=== PATIENT | male | born 1945 | race Caucasian/White ===

== ENCOUNTER 2017-09-09 21:00 | Emergency (ER) | payer MEDICARE, OTHER | END 2017-09-09 21:33 | disposition home or self-care (01) | LOC: ED 21:00 | DX: S61.412A Laceration without foreign body of left hand, initial encounter (principal); W26.8XXA Contact with other sharp object(s), not elsewhere classified, initial encounter; Y93.H9 Activity, other involving exterior property and land maintenance, building and construction | CPT/HCPCS: 12002; 99283 ==

== ENCOUNTER 2019-03-10 08:17 | Emergency (ER) | payer MEDICARE, OTHER ==
--- NOTE | 2019-03-10 08:38 | ERPHSYRPT ---
- History of Present Illness Time Seen by Provider: 03/10/19 08:21 Source: patient Exam Limitations: no limitations Physician History: The patient is a 76-year-old male who presents with a chief complaint of a cough. Onset was last Friday, March 08, 2019. Since that time, and her as having a dry cough that is associated with rhinorrhea, sore throat.. He also states that he feels a "tickle" in the back of his throat which causes him to cough. He denies fever, chills, tones are, difficulty swallowing, change in his voice, shortness of breath and chest pain. He states that he did cough during the change of seasons every year, specifically the spring and fall and this is his typical cough but he experiences during this time. He's been using Tussionex cough syrup to help alleviate his cough but he ran out yesterday. He reportly is also using any drugs The patient seeking relief and medication to relieve his cough. the patient denies smoking currently and has never used tobacco in the past. His primary care provider is associated with [facility]. Timing/Duration: other (03/08) Cough Quality/Degree: mild, dry cough Possible Cause: occasional episodes Modifying Factors: Improves With: lying down Associated Symptoms: cough, nasal congestion, sore throat, No fever, No chills, No chest pain/soreness, No earache, No headache, No shortness of breath, No sinus infection, No wheezing Allergies/Adverse Reactions: No Known Drug Allergies Allergy (Verified 03/10/19 08:37) Home Medications: Fiber [Fiber Diet] 1 each PO DAILY 03/10/19 [History] Multivitamin [Multi-Vitamin Daily] 1 each PO DAILY 03/10/19 [History] - Review of Systems Constitutional: No Fever, No Chills Eyes: No Symptoms Ears, Nose, & Throat: Nose Congestion, Throat Pain, No Hoarse, No Painful Swallowing, No Stridor Respiratory: Cough, No Dyspnea, No Dyspnea on Exertion ([place]), No Stridor, No Wheezing Cardiac: No Chest Pain Abdominal/Gastrointestinal: No Abdominal Pain, No Nausea, No Vomiting All Other Systems: Reviewed and Negative - Past Medical History Pertinent Past Medical History: Yes ENT History: Other (Hearing loss) Cardiac History: No Pertinent History Respiratory History: No Pertinent History Endocrine Medical History: No Pertinent History Musculoskeletal History: No Pertinent History GI Medical History: No Pertinent History - Past Surgical History Neuro Surgical History: No Pertinent History Cardiac: No Pertinent History Respiratory: No Pertinent History - Nursing Vital Signs Nursing Vital Signs: Initial Vital Signs Temperature 98.0 F 03/10/19 08:22 Pulse Rate 73 03/10/19 08:22 Blood Pressure 158/85 03/10/19 08:22 O2 Sat by Pulse Oximetry 97 03/10/19 08:22 Pain Scale Pain Intensity 0 - Physical Exam General Appearance: no apparent distress, alert Eye Exam: PERRL/EOMI, eyes nml inspection, scleral icterus, No pale conjunctivae Ears, Nose, Throat Exam: normal ENT inspection, pharynx normal, moist mucous membranes, other (Partial cerumen impaction in the R ear. No evidence of IT RECRUITER, uvulitis, or Ludwigs), No pharyngeal erythema, No tonsillar exudate Neck Exam: normal inspection Respiratory Exam: normal breath sounds, No chest tenderness, No lungs clear, No respiratory distress, No airway intact, No pleural rub Cardiovascular Exam: regular rate/rhythm, normal heart sounds, normal peripheral pulses, capillary refill <2 sec, No murmur, No friction rub Gastrointestinal/Abdomen Exam: soft, No tenderness Extremity Exam: normal inspection, other (Specifially no lower extremity edema bilaterally), No swelling Neurologic Exam: alert, oriented x 3, cooperative Skin Exam: normal color, warm, dry, No rash, No petechiae, No jaundice Lymphatic Exam: No adenopathy SpO2 Interpretation: normal O2 Delivery: Room Air - Course Nursing assessment & vital signs reviewed: Yes - Radiology Exams Chest X-ray Interpretation: Interpreted by me, Reviewed by me, No Fracture (No acute process identified. Awaiting formal radiology read.), No Pneumonia, No Infiltrates Ordered Tests: Active Orders 24 hr Category Date Time Status CHEST 2 VIEWS (PA AND LAT) Stat Exams 03/10/19 09:02 Taken - Progress Progress: unchanged Air Movement: good Progress Note: 03/10/19 08:43 the patient is nontoxic in appearance with normal work of breathing, clear lung sounds and obvious respiratory distress or hypoxia. I suspect the patient is likely suffering from our URI rigidity to his cough which may be exacerbated by postnasal drip. The go ahead and obtain a chest x-ray which I suspect to be within normal limits. the chest x-ray we'll program to be obtained given his differential includes pneumonia, pulmonary edema, chest mass and/or pleural effusion. I currently have a low suspicion that his symptoms are from a ACS equivalent and I have a low suspicion that his symptoms are secondary to a pulmonary embolism and therefore out of her further workup for such. and so he' ll be discharged home with symptomatic treatment consisting of saline nasal spray,, Tessalon Perles, and albuterol inhaler to use as needed to treat his cough. Blood Culture(s) Obtained: No Antibiotics given: No Counseled pt/family regarding: need for follow-up (Need to f/u with PCP to have blood pressure rechecked given elevated reading in ED today), rad results - Departure Departure Disposition: Home, In-patient Admission Clinical Impression: Viral upper respiratory tract infection with cough, Elevated blood pressure reading Condition: Stable Critical Care Time: No Referrals: NAKUL RAHMAN [Primary Care Provider] - Instructions: High Blood Pressure in Adults, Viral Upper Respiratory Infection , Adult (DC), Cough, Adult (DC) Additional Instructions: Please go get your flu vaccination as soon as possible. Your pharmacy should be able to administer this vaccination if you inquire about it. Prescriptions: Benzonatate [Tessalon Perle] 100 mg PO [id number] PRN #30 capsule PRN Reason: Cough Albuterol 8 gm Mdi Hfa [Ventolin Hfa MDI] 8 gm IH Q4-6HPRN PRN #1 [id number] PRN Reason: Cough Sodium Chloride [Saline Nasal [place]] 30 ml NS BID PRN #1 spray
[2019-03-10 09:19] VITALS: BP 153/89; PULSE 78; O2SAT 98
--- NOTE | 2019-03-10 15:22 | XRAY ---
Indication: Cough. Comparison: None PA/lateral chest clear. Heart and mediastinal structures within normal limits. Bony thorax intact with mild degenerative changes. Impression: Nonacute chest.
== END 2019-03-10 09:19 | disposition home or self-care (01) ==
LOC: ED 08:17
DX: J06.9 Acute upper respiratory infection, unspecified (principal); R05 Cough; R03.0 Elevated blood-pressure reading, without diagnosis of hypertension
CPT/HCPCS: 71046; 99283

== ENCOUNTER 2020-06-30 14:45 | Emergency (ER) | payer MEDICARE, OTHER ==
[2020-06-30 15:02] VITALS: BP 149/90
[2020-06-30] MEDS ORDERED: SUBLIMAZE 100 MCG/2 ML IV ONE ×2 (15:32→16:19)
[2020-06-30] MEDS ORDERED: Zofran 4 MG/2 ML VIAL IV ONE (15:32)
[2020-06-30] MEDS ORDERED: Adacel Vial IM ONE ×2 (15:38→15:42)
[2020-06-30] MEDS ORDERED: Zofran 4 MG/2 ML VIAL ONE (15:40)
[2020-06-30] MEDS ORDERED: SUBLIMAZE 100 MCG/2 ML ONE ×2 (15:40→16:22)
--- NOTE | 2020-06-30 16:12 | XRAY ---
Indication: Posterior laceration following fall. Multiple contiguous axial images obtained through the head without contrast. Comparison: None Age-appropriate global atrophy and small focus old left occipital lobe infarct. Tiny right parafalcine hyperdensity anteriorly measuring 2 cm in length and 2-3 mm thickeness concerning for tiny subdural hematoma. Smaller left frontal subdural hematoma 2 mm thickness. No mass effect or midline shifting. Fourth ventricle is midline without hydrocephalus. Magallanes-white matter differentiation preserved. Bony calvarium intact. Small left occipital scalp laceration without radiopaque foreign body. Visualized paranasal sinuses and mastoid air cells are clear. Impression: 1. Tiny right anterior parafalcine and tiny left frontal subdural hematomas as detailed. 2. Left occipital laceration. 3. Incidental age-appropriate atrophy and small left occipital lobe infarct.
--- NOTE | 2020-06-30 16:18 | XRAY ---
Indication: Pain following fall. Comparison: None 4 view left knee demonstrates osteopenia, infrapatella spur, and small posterior fabella. No other bony, articular, or soft tissue abnormalities.
[2020-06-30 16:32] VITALS: PULSE 89
[2020-06-30 16:37] VITALS: O2SAT 93
--- NOTE | 2020-06-30 16:37 | ERPHSYRPT ---
- History of Present Illness Source: patient Exam Limitations: no limitations Patient Subjective Stated Complaint: Head injury Triage Nursing Assessment: Patient brought back to ED via w/c and transferred to bed with assist of 1. Patient A+O X3. Patient's skin pink, warm and dry. Patient complains of head injury after falling. Patient states he was cleaning up your property and picking up trash and his foot slipped out from under him causing him to fall backwards hitting an unknown object. Patient states he did not lose consciousness. Patient complains of headache 10/10 and left leg pain with small abrasion to behind of left knee. Patient has laceration to back of head 5cm. Physician History: 74 yo wm fell backward while picking up trash on his property. Pt denies LOC but was dazed. He denies C/T/L-spine pain/Hip pain/chest pain but has mild L popliteal fossa pain. Pt alert and oriented x 3 upon arrival wo neurologic deficit. He has a 5cm occiput laceration. Tetanus given in ER. IV access started and pt given 25umg IV Fentanyl-4mg IV Zofran w improvement in pain. He denies and chest pain/dyspnea/focal weakness before his episode. Occurred: just prior to arrival Severity: severe Head Injury Location: occipital Method of Injury: fell Associated Symptoms: denies symptoms Allergies/Adverse Reactions: No Known Drug Allergies Allergy (Verified 06/30/20 14:52) Home Medications: Fiber [Fiber Diet] 1 each PO DAILY 03/10/19 [History] Multivitamin [Multi-Vitamin Daily] 1 each PO DAILY 03/10/19 [History] Hx Influenza Vaccination/Date Given: Yes Hx Pneumococcal Vaccination/Date Given: Yes Immunizations Up to Date: Yes Travel Risk - International Travel Have you traveled outside of the country in past 3 weeks: No - Coronavirus Screening Are you exhibiting any of the following symptoms?: No Close contact with a COVID-19 positive Pt in past 14-21 Days: No - Review of Systems Constitutional: No Symptoms Eyes: No Symptoms Ears, Nose, & Throat: No Symptoms Respiratory: No Symptoms Cardiac: No Symptoms Abdominal/Gastrointestinal: No Symptoms Genitourinary Symptoms: No Symptoms Musculoskeletal: Injury (Abrasion L posterior knee) Skin: No Symptoms Neurological: No Symptoms Psychological: No Symptoms Endocrine: No Symptoms Hematologic/Lymphatic: No Symptoms Immunological/Allergic: No Symptoms - Past Medical History Pertinent Past Medical History: Yes ENT History: Other Cardiac History: No Pertinent History Respiratory History: No Pertinent History Endocrine Medical History: No Pertinent History Musculoskeletal History: No Pertinent History GI Medical History: No Pertinent History Male Reproductive Disorders: Prostate Cancer - Past Surgical History Past Surgical History: No Neuro Surgical History: No Pertinent History Cardiac: No Pertinent History Respiratory: No Pertinent History - Social History Smoking Status: Never smoker Exposure to second hand smoke: No Drug Use: none Patient Lives Alone: No Significant Family History: no pertinent family hx - Nursing Vital Signs Nursing Vital Signs: Initial Vital Signs Pulse Rate 85 06/30/20 14:54 Respiratory Rate 18 06/30/20 14:54 Blood Pressure 149/90 06/30/20 14:54 O2 Sat by Pulse Oximetry 93 L 06/30/20 14:54 Pain Scale Pain Intensity 5 - Alida Coma Score Best Eye Response ([place]): (4) open spontaneously Best Verbal Response ([place]): (5) oriented Best Motor Response ([place]): (6) obeys commands [place] Total: 15 - Physical Exam General Appearance: no apparent distress Head Injury: tenderness (Occiput TTP/5cm lacerartion/Good hemostasis) Eye Exam: bilateral eye: normal inspection, PERRL, EOMI ENT Exam: airway nml, No evidence of ENT injury Neck Exam: supple, trachea midline, full range of motion (C-spine nttp) Cardiovascular/Respiratory Exam: chest non-tender, normal breath sounds, regular rate/rhythm, heart sounds normal Gastrointestinal/Abdominal Exam: soft, non tender, no distention Back Exam: normal inspection (No T or L-spine ttp) Mental Status Exam: alert, oriented x 3, cooperative, No agitated, No disoriented to person, No disoriented to place, 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 Exam: normal hearing, normal speech, PERRL Coordination/Gait Exam: normal cerebellar function Motor/Sensory Exam: no motor deficit, no sensory deficit, no pronator drift, negative Babinski's sign, CN II-XII intact, No pronator drift (R), No pronator drift (L), No sensory deficit DTR Exam: bicep (R): 2+, bicep (L): 2+ Skin Exam: normal color, warm, dry, No rash Lymphatic Exam: No adenopathy SpO2 Interpretation: normal SpO2: 93 O2 Delivery: Room Air Procedures - Laceration/Wound Repair Occipital Wound Location: head Wound's Depth, Shape: linear Wound Explored: clean Hibiclens Prep: Yes Wound Repaired With: [place] (x8) - Course Nursing assessment & vital signs reviewed: Yes - Radiology Exams Knee X-ray Interpretation: Discussed w/ radiologist (L knee neg per Rad) - CT Exams Head CT Interpretation: Discussed w/radiologist (Tiny R anterior parafalcine and tiny L frontal dusdural hematoma) Cervical Spine CT Interpretation: Discussed w/radiologist (No cervical fx/hairline L occipital fx) Ordered Tests: Active Orders 24 hr Category Date Time Status CERVICAL SPINE WO CONTRAST [CT] Stat Exams 06/30/20 16:27 Completed HEAD WITHOUT CONTRAST [CT] Stat Exams 06/30/20 15:10 Completed KNEE (MIN 4 VIEW) Stat Exams 06/30/20 15:15 Completed Medication Summary Discontinued Medications Generic Name Dose Route Start Last Admin Trade Name Freq PRN Reason Stop Dose Admin Diphtheria/Tetanus/Acell Pertussis 0.5 ml 06/30/20 15:38 06/30/20 15:43 Adacel Vial IM 06/30/20 15:39 0.5 ml .ONCE ONE Administration Diphtheria/Tetanus/Acell Pertussis Confirm 06/30/20 15:42 Adacel Vial Administered 06/30/20 15:43 Dose 0.5 ml IM .STK-MED ONE Fentanyl Citrate 25 mcg 06/30/20 15:32 06/30/20 15:44 Sublimaze 100 Mcg/2 Ml IV 06/30/20 15:33 25 mcg STAT ONE Administration Fentanyl Citrate Confirm 06/30/20 15:40 Sublimaze 100 Mcg/2 Ml Administered 06/30/20 15:41 Dose 100 mcg .ROUTE .STK-MED ONE Fentanyl Citrate 25 mcg 06/30/20 16:19 06/30/20 16:30 Sublimaze 100 Mcg/2 Ml IV 06/30/20 16:20 25 mcg STAT ONE Administration Fentanyl Citrate Confirm 06/30/20 16:22 Sublimaze 100 Mcg/2 Ml Administered 06/30/20 16:23 Dose 100 mcg .ROUTE .STK-MED ONE Sodium Chloride 1,000 mls @ 999 mls/hr 06/30/20 17:00 06/30/20 17:05 Sodium Chloride 0.9% 1000 Ml IV 06/30/20 18:00 999 mls/hr .Q1H1M STA Administration Sodium Chloride Confirm 06/30/20 17:04 Sodium Chloride 0.9% 1000 Ml Administered 06/30/20 17:05 Dose 1,000 mls @ ud .ROUTE .STK-MED ONE Ondansetron HCl 4 mg 06/30/20 15:32 06/30/20 15:43 Zofran 4 Mg/2 Ml Vial IV 06/30/20 15:33 4 mg STAT ONE Administration Ondansetron HCl Confirm 06/30/20 15:40 Zofran 4 Mg/2 Ml Vial Administered 06/30/20 15:41 Dose 4 mg .ROUTE .STK-MED ONE - Progress Progress: improved Progress Note: 06/30/20 16:[address] Solitario at [facility] CT of C-spine done and neurosurgery consulted. Pt accepted by Dr. Lambert(neurosurgery). 06/30/20 22:07 Pt w 25umg IV Fentanyl x2 w improvement in pain Counseled pt/family regarding: lab results, diagnosis, rad results - Departure Departure Disposition: Transfer Clinical Impression: Subdural hematoma, Skull fracture, Acute intra-cranial hemorrhage, Scalp laceration Condition: Fair Critical Care Time: No Referrals: DOCTOR,NO FAMILY [Primary Care Provider] -
--- NOTE | 2020-06-30 16:48 | XRAY ---
Indication: Posterior head laceration following fall. Multiple contiguous axial images obtained through the cervical spine. Sagittal and coronal reformatted images obtained. Comparison: None Axial images of the cervical spine negative for acute fracture, suspicious bony lesions, or spinal canal stenosis. There is minimal/mild C3-C7 degenerative endplate spurring and minimal/mild multilevel bilateral degenerative facet hypertrophy right greater than left. Sagittal and coronal reformatted images demonstrates lordotic straightening, positional versus paraspinal spasm. C5-C7 disc space loss. No acute compression fracture, subluxation, or jumped facet. Normal appearing craniocervical junction. Visualized noncontrasted soft tissues unremarkable. Base of the brain demonstrates nondisplaced hairline left occipital fracture Impression: 1. Cervical lordotic straightening, positional versus paraspinal spasm. Negative acute cervical fracture/subluxation. 2. Incidental hairline left occipital skull fracture. 3. Multilevel degenerative changes.
[2020-06-30] MEDS ORDERED: Sodium Chloride 0.9% 1000 ML 1,000 ML IV STA (17:00)
[2020-06-30] MEDS ORDERED: Sodium Chloride 0.9% 1000 ML 1,000 ML ONE (17:04)
== END 2020-06-30 17:35 | disposition short-term general hospital (02) ==
LOC: ED 14:45
DX: S06.5X9A Traumatic subdural hemorrhage with loss of consciousness of unspecified duration, initial encounter (principal); S02.91XA Unspecified fracture of skull, initial encounter for closed fracture; I62.9 Nontraumatic intracranial hemorrhage, unspecified; S01.01XA Laceration without foreign body of scalp, initial encounter; W01.0XXA Fall on same level from slipping, tripping and stumbling without subsequent striking against object, initial encounter; R51.9 Headache, unspecified; M79.605 Pain in left leg; S80.212A Abrasion, left knee, initial encounter
CPT/HCPCS: 12002; 70450; 72125; 73564; 90471; 90715; 96374; 96375; 99285; J2405; J3010

== ENCOUNTER 2020-07-05 12:16 | Emergency (ER) | payer MEDICARE, OTHER ==
[2020-07-05] MEDS ORDERED: Zofran 4 MG/2 ML VIAL IV ONE (12:42)
[2020-07-05] MEDS ORDERED: MORPHINE SULFATE 4 MG INJ IV ONE (12:42)
[2020-07-05] MEDS ORDERED: Zofran 4 MG/2 ML VIAL ONE (12:43)
[2020-07-05] MEDS ORDERED: MORPHINE SULFATE 4 MG INJ ONE (12:43)
[2020-07-05] MEDS ORDERED: SUBLIMAZE 100 MCG/2 ML IV ONE (13:36)
[2020-07-05] MEDS ORDERED: SUBLIMAZE 100 MCG/2 ML ONE (13:37)
[2020-07-05 14:26] VITALS: O2SAT 99
--- NOTE | 2020-07-05 15:08 | ERPHSYRPT ---
- History of Present Illness Time Seen by Provider: 07/05/20 12:34 Source: patient, family Exam Limitations: no limitations Patient Subjective Stated Complaint: back pain Triage Nursing Assessment: Patient brought back to ED via w/c and transferred to bed with assist of 1.Patient A+O X3. Patient's skin pink, warm and dry. Patient had recent fall with injury on 06-30-2020 and was dx with occipital skull fx, two brain bleeds, concussion, whip lash. Patient has laceration to back of head with 8 lorenza. Patient released from [facility] on 07/01/2020. Patient was given Butalbital for headache which doesn't help. Patient has been taking T ylenol every 6 hours for pain. Patient noted to have tears in eye and states his pain is 10/10 to back of head, neck and lower back. Physician History: 74 years old male with a history of fall with hairline occipital skull fracture with superficial scalp laceration and right parietal/temporal hematoma 5 days ago, was observed at [facility] for day, was discharged on Fioricet presenting today with sharp throbbing headache all over especially in the occipital area moderate to severe intensity without any significant aggravating or relieving factors. He has been taking Fioricet with no relief at all. He also noticed increasing pain in the lower back where he fell on the ground. Does not have any difficulty movements of lower extremity, no loss of bowel or bladder control. No numbness tingling or weakness in lower extremities. No chest pain abdominal pain etc. Per patient was told upon discharge to decrease screen time but he has been watching TV and playing video games on his cell phone which could be the reason for his headache. Timing/Duration: today, gradual onset, worse Method of Injury: fall Quality: sharp Back Pain Location: lumbar spine, paraspinous muscles Severity of Pain-Max: severe Severity of Pain-Current: moderate Modifying Factors: Improves With: pain medication, rest. Worsens With: movement Associated Symptoms: lower back pain, No fever, No urinary incontinence, No loss of bowel control, No vomiting, No problems urinating, No numbness in legs/feet, No sensory/motor loss, No tingling in legs/feet Previous symptoms: no prior history Allergies/Adverse Reactions: No Known Drug Allergies Allergy (Verified 07/05/20 12:21) Home Medications: Fiber [Fiber Diet] 1 each PO DAILY 03/10/19 [History] Multivitamin [Multi-Vitamin Daily] 1 each PO DAILY 03/10/19 [History] Hx Influenza Vaccination/Date Given: Yes Hx Pneumococcal Vaccination/Date Given: Yes Immunizations Up to Date: Yes Travel Risk - International Travel Have you traveled outside of the country in past 3 weeks: No - Coronavirus Screening Are you exhibiting any of the following symptoms?: No Close contact with a COVID-19 positive Pt in past 14-21 Days: No - Review of Systems Constitutional: No Symptoms Eyes: No Symptoms Ears, Nose, & Throat: No Symptoms Respiratory: No Symptoms Cardiac: No Symptoms Abdominal/Gastrointestinal: No Symptoms Genitourinary Symptoms: No Symptoms Musculoskeletal: Back Pain, Myalgias Skin: No Symptoms Neurological: Headache Psychological: No Symptoms Endocrine: No Symptoms Hematologic/Lymphatic: No Symptoms Immunological/Allergic: No Symptoms - Past Medical History Pertinent Past Medical History: Yes ENT History: Other Cardiac History: No Pertinent History Respiratory History: No Pertinent History Endocrine Medical History: No Pertinent History Musculoskeletal History: No Pertinent History GI Medical History: No Pertinent History Male Reproductive Disorders: Prostate Cancer - Past Surgical History Past Surgical History: No Neuro Surgical History: No Pertinent History Cardiac: No Pertinent History Respiratory: No Pertinent History - Social History Smoking Status: Never smoker Exposure to second hand smoke: No Drug Use: none Patient Lives Alone: No Significant Family History: no pertinent family hx - Nursing Vital Signs Nursing Vital Signs: Initial Vital Signs Pulse Rate 60 07/05/20 12:25 Respiratory Rate 18 07/05/20 12:25 Blood Pressure 171/91 07/05/20 12:25 O2 Sat by Pulse Oximetry 97 07/05/20 12:25 Pain Scale Pain Intensity 4 - Physical Exam General Appearance: no apparent distress, alert Eye Exam: PERRL/EOMI, eyes nml inspection Ears, Nose, Throat Exam: normal ENT inspection, TMs normal, pharynx normal Neck Exam: normal inspection, non-tender, supple, full range of motion Respiratory Exam: normal breath sounds, lungs clear Cardiovascular Exam: regular rate/rhythm, normal heart sounds Gastrointestinal Exam: soft, normal bowel sounds, No tenderness, No distention Back Exam: normal inspection, vertebral tenderness (Upper lumbar), decreased range of motion, muscle spasm Extremity Exam: normal inspection, normal range of motion, pelvis stable Neurologic Exam: alert, oriented x 3, backup operator II-XII nml as tested, normal mood/affect, nml cerebellar function, sensation nml, No motor deficits Skin Exam: normal color SpO2 Interpretation: normal SpO2: 99 O2 Delivery: Room Air Ordered Tests: Active Orders 24 hr Category Date Time Status Wood Lathe Operator STAT Care 07/05/20 13:44 Active Oxygen-ED Only Nasal Cannula 2 lpm Care 07/05/20 13:44 Active HEAD WITHOUT CONTRAST [CT] Stat Exams 07/05/20 12:41 Taken LUMBAR SPINE W/O [CT] Stat Exams 07/05/20 12:41 Taken Medication Summary Discontinued Medications Generic Name Dose Route Start Last Admin Trade Name Nancy PRN Reason Stop Dose Admin Fentanyl Citrate 50 mcg 07/05/20 13:36 07/05/20 13:38 Sublimaze 100 Mcg/2 Ml IV 07/05/20 13:37 50 mcg STAT ONE Administration Fentanyl Citrate Confirm 07/05/20 13:37 Sublimaze 100 Mcg/2 Ml Administered 07/05/20 13:38 Dose 100 mcg .ROUTE .STK-MED ONE Morphine Sulfate 4 mg 07/05/20 12:42 07/05/20 12:45 Morphine Sulfate 4 Mg Inj IV 07/05/20 12:43 4 mg STAT ONE Administration Morphine Sulfate Confirm 07/05/20 12:43 Morphine Sulfate 4 Mg Inj Administered 07/05/20 12:44 Dose 4 mg .ROUTE .STK-MED ONE Ondansetron HCl 4 mg 07/05/20 12:42 07/05/20 12:45 Zofran 4 Mg/2 Ml Vial IV 07/05/20 12:43 4 mg STAT ONE Administration Ondansetron HCl Confirm 07/05/20 12:43 Zofran 4 Mg/2 Ml Vial Administered 07/05/20 12:44 Dose 4 mg .ROUTE .STK-MED ONE - Progress Progress: improved, pain not gone completely, re-examined Progress Note: 07/05/20 16:34 74 years old is evaluated for worsening headache and low back pain. He has negative neuro exam in lower extremities. No other focal neuro symptoms. Is given morphine followed by fentanyl which improved his back pain but still have headache. This could be related to recent head injury. I have repeated CT head which showed some improvement in the hematomas and no new bleed. I have also obtained CT lumbar spine which is negative for any acute fracture or subluxation. No cauda equina symptoms. This could be related to fall with low back contusion/strain. Patient continued to have headache and Fioricet does not help. Patient and family want to stay in the hospital, discussed with Dr. Dale who recommended transfer to [facility] with trauma services. I have discussed with Dr. Altamirano and patient is accepted for transfer. Discussed with Dr.: Sofy, Other (Dr. Martinez [facility] trauma service) Counseled pt/family regarding: diagnosis, rad results - Departure Departure Disposition: Transfer Clinical Impression: Headache Qualifiers: Headache type: post-traumatic Headache chronicity pattern: acute headache Intractability: intractable Qualified Code(s): G44.311 - Acute post-traumatic headache, intractable Low back pain Qualifiers: Chronicity: acute Back pain laterality: bilateral Sciatica presence: without sciatica Qualified Code(s): M54.5 - Low back pain Condition: Stable Critical Care Time: Yes Critical Care Time(excluding separately billable procedures): Critical 30-74 mins
[2020-07-05 16:10] VITALS: BP 147/84; PULSE 58
--- NOTE | 2020-07-05 19:22 | XRAY ---
Indication: Severe headache following fall 5 days ago. Multiple contiguous axial images obtained through the head without contrast. Comparison: June 30, 2020. Previous tiny left frontal subdural hematoma has resolved. Previous tiny right anterior parafalcine subdural hematoma has also improved with tiny residual. Right posterior temporal lobe demonstrates very tiny subarachnoid hemorrhage also improved. Fourth ventricle is midline without hydrocephalus. Magallanes-white matter differentiation preserved. Bony calvarium demonstrates stable left occipital hairline fracture. Remaining bony calvarium intact. New left posterior scalp lorenza. Impression: 1. Previous tiny bifrontal subdural hematomas and right posterior temporal subarachnoid hemorrhage have overall improved as detailed. No new intracranial abnormalities. 2. Stable left occipital skull fracture. Comment: Preliminary interpretation was made by [facility]. No critical discrepancy.
--- NOTE | 2020-07-05 19:26 | XRAY ---
Indication: Low back pain following fall 5 days ago. Multiple contiguous axial images obtained through the lumbar spine. Sagittal and coronal reformatted images obtained. Comparison: None No acute fracture, suspicious bony lesions, or spinal canal stenosis. There is mild broad-based L4-S1 disc bulge and L5-S1 degenerative vacuum disc phenomena. Sagittal and coronal reformatted images demonstrates normal lumbar alignment with L5-S1 disc space narrowing. Remaining vertebral body heights/disc spaces maintained. Visualized noncontrasted soft tissues demonstrates incompletely visualized small gallstones, faint right adrenal calcifications, incompletely visualized left renal cysts largest at least 7 cm, and nonobstructing right renal punctate calculus. Impression: 1. Negative acute fracture/subluxation. 2. L4-S1 degenerative disc disease better evaluated with MRI. 3. Incidental incompletely visualized gallstones and left renal cysts. Comment: Preliminary interpretation was made by [facility]. No critical discrepancy.
== END 2020-07-05 17:03 | disposition short-term general hospital (02) ==
LOC: ED 12:16
DX: G44.311 Acute post-traumatic headache, intractable (principal); M54.5 Low back pain; M79.18 Myalgia, other site; W18.30XD Fall on same level, unspecified, subsequent encounter
CPT/HCPCS: 36000; 70450; 72131; 93041; 96374; 96375; 99285; 99291; J2270; J2405; J3010

== ENCOUNTER 2023-02-28 09:28 | Emergency (ER) | payer MEDICARE, OTHER ==
[2023-02-28 09:43] VITALS: TEMP 96.8
--- NOTE | 2023-02-28 10:04 | ERPHSYRPT ---
- History of Present Illness Time Seen by Provider: 02/28/23 09:45 Source: patient Exam Limitations: no limitations Patient Subjective Stated Complaint: Pt states "I had a prostate biopsy on the 23 of february and they put a tube in and took the tube out yesterday and there was allot of blood and I am still having pink in my urine but it is hurting." Triage Nursing Assessment: Pt presented alert and oriented X 3, skin pwd. PT had depends on and stated he has urinated twice in the depends and it was changed. PT resting comfortably on the bed. Physician History: Patient is a 77-year-old male presents to the emergency department for evaluation of suprapubic pain. Patient states he is experiencing pressure in the suprapubic region. He advises that he had a prostate biopsy on , 23 February. Patient subsequently had a Mendez catheter placed. Patient had been urinating some blood in the catheter. The catheter was pulled yesterday. Patient states he was bleeding significant blood at that time. Patient has been wearing a adult diaper. Patient states there has been some urine dribble. The urine color appeared to be blood-tinged. Patient does not believe he is completely voiding. Patient is experiencing pressure and pain of the suprapubic region. No fever. No trauma. No nausea vomiting or diaphoresis. No diarrhea. No rash. Patient otherwise feels well. at bedside. They voiced no other complaints or concerns at this time. Portions of this note were created with voice recognition technology. There may be grammatical, spelling, punctuation or sound alike errors Timing/Duration: today Severity: moderate Modifying Factors: Improves With: nothing Associated Symptoms: denies symptoms Allergies/Adverse Reactions: No Known Drug Allergies Allergy (Verified 07/05/20 12:21) Home Medications: Fiber [Fiber Diet] 1 each PO DAILY 03/10/19 [History] Multivitamin [Multi-Vitamin Daily] 1 each PO DAILY 03/10/19 [History] Hx Tetanus, Diphtheria Vaccination/Date Given: Yes Hx Influenza Vaccination/Date Given: Yes Hx Pneumococcal Vaccination/Date Given: Yes Immunizations Up to Date: Yes Travel Risk - International Travel Have you traveled outside of the country in past 3 weeks: No - Coronavirus Screening Are you exhibiting any of the following symptoms?: No Close contact with a COVID-19 positive Pt in past 14-21 Days: No - Vaccine Status Have you recieved a Covid-19 vaccination: Yes Electrolytic Etcher: Unknown - Vaccination Dates Dates if Unknown: 2020 - Review of Systems Constitutional: No Symptoms, No Fever, No Chills Eyes: No Symptoms Ears, Nose, & Throat: No Symptoms Respiratory: No Symptoms, No Cough, No Dyspnea Cardiac: No Symptoms, No Chest Pain, No Edema, No Syncope Abdominal/Gastrointestinal: No Symptoms, No Abdominal Pain, No Nausea, No Vomiting, No Diarrhea Genitourinary Symptoms: No Symptoms, No Dysuria Musculoskeletal: No Symptoms, No Back Pain, No Neck Pain Skin: No Symptoms, No Rash Neurological: No Symptoms, No Dizziness, No Focal Weakness, No Sensory Changes Psychological: No Symptoms Endocrine: No Symptoms Hematologic/Lymphatic: No Symptoms Immunological/Allergic: No Symptoms All Other Systems: Reviewed and Negative - Past Medical History Pertinent Past Medical History: Yes ENT History: Other Cardiac History: No Pertinent History Respiratory History: No Pertinent History Endocrine Medical History: No Pertinent History Musculoskeletal History: No Pertinent History GI Medical History: No Pertinent History Male Reproductive Disorders: Prostate Cancer - Past Surgical History Past Surgical History: Yes Neuro Surgical History: No Pertinent History Cardiac: No Pertinent History Respiratory: No Pertinent History Other Surgical History: prostate biopsy - Social History Smoking Status: Never smoker Exposure to second hand smoke: No Drug Use: none Patient Lives Alone: No Significant Family History: no pertinent family hx - Nursing Vital Signs Nursing Vital Signs: Initial Vital Signs Temperature 96.8 F 02/28/23 09:34 Pulse Rate 58 L 02/28/23 09:34 Respiratory Rate 20 02/28/23 09:34 Blood Pressure 135/78 02/28/23 09:34 O2 Sat by Pulse Oximetry 98 02/28/23 09:34 Pain Scale Pain Intensity 0 - Physical Exam General Appearance: no apparent distress, alert Eye Exam: PERRL/EOMI, eyes nml inspection Ears, Nose, Throat Exam: normal ENT inspection, moist mucous membranes Neck Exam: normal inspection, full range of motion Respiratory Exam: normal breath sounds, airway intact, No respiratory distress Cardiovascular Exam: regular rate/rhythm, normal heart sounds, normal peripheral pulses Gastrointestinal/Abdomen Exam: soft, normal bowel sounds, other (Tender suprapubic region. The area feels distended consistent with urinary retention), No tenderness, No mass Back Exam: normal inspection, normal range of motion, No CVA tenderness, No vertebral tenderness Extremity Exam: normal inspection, normal range of motion, pelvis stable Neurologic Exam: alert, oriented x 3, cooperative, normal mood/affect, sensation nml, No motor deficits Skin Exam: normal color, warm, dry, No rash Lymphatic Exam: No adenopathy SpO2 Interpretation: normal SpO2: 98 O2 Delivery: Room Air - Course Nursing assessment & vital signs reviewed: Yes Ordered Tests: Active Orders 24 hr Category Date Time Status CULTURE,URINE Stat Lab 02/28/23 10:13 Received UA W/RFX UR CULTURE Stat Lab 02/28/23 10:13 Completed Medication Summary Generic Name Dose Route Start Last Admin Trade Name Freq PRN Reason Stop Dose Admin Ciprofloxacin 500 mg 02/28/23 11:17 Ciprofloxacin 500 Mg Tablet PO 02/28/23 11:18 ONCE STA Lab/Rad Data: Laboratory Results 02/28/23 Range/Units 10:13 Urine Color Dark Yellow (Yellow) Urine Appearance Cloudy A (Clear) Urine pH 5.5 (4.6-8.0) Ur Specific [place] 1.010 (1.005-1.030) Urine Protein 30 (Negative) Urine Glucose (UA) Negative (Negative) mg/dL Urine Ketones Negative (Negative) Urine Blood Large A (Negative) Urine Nitrite Positive A (Negative) Urine Bilirubin Negative (Negative) Urine Urobilinogen 1.0 A (0.2) mg/dL Ur Leukocyte Esterase Trace A (Negative) U Hyaline Cast (Auto) NONE SEEN (0-2) /LPF Urine Microscopic RBC 51-100 A (0-5) /HPF Urine Microscopic WBC 3-5 (0-5) /HPF Ur Epithelial Cells None Seen (None Seen) /HPF Urine Bacteria None Seen (None Seen) /HPF Urine Culture Reflexed ORDERED SEPARATELY (NO) - Progress Progress: improved Progress Note: Patient is a 77-year-old male recently had a prostate biopsy presents to our ED 1 day post indwelling catheter removal. Patient presents today with suprapubic pain. Physical exam reveals pain and pressure to the suprapubic region. Physical exam otherwise negative. Indwelling Mendez catheter was placed. Approximately 900 cc of dark urine was obtained. Patient experienced immediate relief. Urinalysis revealed a urinary tract infection. Patient diagnosed with urinary retention and urinary tract infection. Indwelling Mendez catheter kept in place. Leg bag was placed. Patient received an oral dose of ciprofloxacin in our ED. A prescription for the same was forwarded to patient's pharmacy. at bedside. She will call the OK today to schedule follow-up appointment. No indication for further work-up at this time. Will discharge home. Patient/ voiced no other complaints or concerns at this time. Patient pain-free at discharge. Portions of this note were created with voice recognition technology. There may be grammatical, spelling, punctuation or sound alike errors Complexity of problems addressed is moderate acute complicated No critical care time Complexity of data reviewed and analyzed is moderate. Test ordered test reviewed. Results analyzed and clinically correlated with history and physical exam. Risk of complication and a risk of morbidity/mortality of patient management is moderate. Prescription for ciprofloxacin was forwarded to patient's pharmacy. Patient was discharged home. Vital stable. Diagnosis is urinary tract infection and urinary retention. Time spent to discharge patient is approximately 15 minutes. Plan of care established for shared decision making. No social determinants of health present to impede follow-up. Portions of this note were created with voice recognition technology. There may be grammatical, spelling, punctuation or sound alike errors 02/28/23 11:23 Counseled pt/family regarding: lab results, diagnosis, need for follow-up - Departure Departure Disposition: Home Clinical Impression: Urinary retention, UTI (urinary tract infection) Condition: Stable Critical Care Time: No Additional Instructions: Discharge/Care Plan JENNIFER,GUILLERMO YU was seen on 02/28/23 in the Emergency Room. The patient was counseled regarding Diagnosis,Lab results, Imaging studies, need for follow up and when to return to the Emergency Room. Prescriptions given: Discharge Note I have spoken with the patient and/or caregivers. I have explained the patient's condition, diagnosis and treatment plan based on the information available to me at this time. I have answered the patient's and/or caregiver's questions and addressed any concerns. The patient and/or caregivers have as good understanding of the patient's diagnosis, condition and treatment plan as can be expected at this point. The vital signs have been stable. The patient's condition is stable and appropriate for discharge from the emergency department. The patient will pursue further outpatient evaluation with the primary care physician or other designated or consulting physician as outlined in the discharge instructions. The patient and/or caregivers are agreeable to this plan of care and follow-up instructions have been explained in detail. The patient and/or caregivers have received these instruction. The patient/and or caregivers are aware that any significant change in condition or worsening of symptoms should prompt an immediate return to this or the closest emergency department or call 911. Prescriptions: Ciprofloxacin [Cipro 500 MG] 500 mg PO BID #14 tablet
[2023-02-28 10:23] LABS: Appearance Cloudy (Clear); Bacteria None Seen /HPF (None Seen); Bilirubin Negative (Negative); Blood Large (Negative); Epithelial Cells None Seen /HPF (None Seen); Glucose, Urine Negative (Negative); Hyaline Casts NONE SEEN /LPF (0-2); Ketones Negative (Negative); Leukocyte Esterase Trace (Negative); Nitrite Positive (Negative); Ph 5.5 (4.6-8.0); Protein,Urine Dip 30 (Negative); RBC 51-100 /HPF (0-5)
[2023-02-28 10:24] LABS: ADD URINE CULTURE? ORDERED SEPARATELY (NO)
[2023-02-28 10:41] VITALS: RESP 60
[2023-02-28] MEDS ORDERED: Cipro 500 MG PO STA (11:17)
[2023-02-28] MEDS ORDERED: Cipro 500 MG ONE (11:17)
[2023-02-28 11:23] VITALS: O2SAT 98
[2023-02-28 11:35] VITALS: BP 154/82; PULSE 62
== END 2023-02-28 11:35 | disposition home or self-care (01) ==
LOC: ED 09:28
DX: N39.0 Urinary tract infection, site not specified (principal); R33.9 Retention of urine, unspecified; R10.2 Pelvic and perineal pain
CPT/HCPCS: 51702; 81001; 87086; 99283; A9270-GY

== ENCOUNTER 2024-06-23 12:31 | Emergency (ER) | payer MEDICARE ==
[2024-06-23 12:42] VITALS: TEMP 97.5
--- NOTE | 2024-06-23 12:54 | ERPHSYRPT ---
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 He did not lose consciousness but had to hold onto the pulpit and lean over with his head down. The episode lasted approximately five minutes, causing concern among others who thought he might fall. During the episode, no chest pain, trouble breathing, or palpitations. He did experience some belching, which seemed to alleviate the sensation of his heart 'going away'. No previous similar episodes, recent illness, changes in appetite, or alcohol consumption. His typical breakfast includes two granola bars and a glass of juice. His past medical history includes prostate cancer, for which he underwent treatment in April and May of the previous year. He is currently taking Flomax and has not had any new medications added recently. No history of heart problems, diabetes, or leg swelling. During the review of symptoms, no recent illness, chest pain, trouble breathing, palpitations, or leg swelling. No new medications or changes in his usual diet and fluid intake. Witnessed: by family, by friend, bystander Prior Episodes: single episode today Timing/Duration: today Precipitating Factors: unknown Context: standing Loss of Consciousness: no loss of consciousness Charcter of event(s): felt faint, almost passed out Allergies/Adverse Reactions: No Known Drug Allergies Allergy (Verified 06/23/24 12:42) Home Medications: Multivitamin [Multi-Vitamin Daily] 1 each PO DAILY 03/10/19 [History] Calcium Carb/Vitamin D 500 mg* [Calcium 500MG W/Vit D Tablet] 1 tab PO DAILY 06/23/24 [History] Tamsulosin HCl 0.4 mg [Flomax 0.4 MG] 0.4 mg PO BID 06/23/24 [History] Hx Tetanus, Diphtheria Vaccination/Date Given: Yes Hx Influenza Vaccination/Date Given: Yes Hx Pneumococcal Vaccination/Date Given: Yes Travel Risk - International Travel Have you traveled outside of the country in past 3 weeks: No - Emerging Infectious Disease Are you exhibiting symptoms associated with any current EIDs: No - Past Medical History Pertinent Past Medical History: Yes ENT History: Other Cardiac History: No Pertinent History Respiratory History: No Pertinent History Endocrine Medical History: No Pertinent History Musculoskeletal History: No Pertinent History GI Medical History: No Pertinent History Male Reproductive Disorders: Prostate Cancer - Past Surgical History Past Surgical History: Yes Neuro Surgical History: No Pertinent History Cardiac: No Pertinent History Respiratory: No Pertinent History Other Surgical History: prostate biopsy Significant Family History: no pertinent family hx - Social History Smoking Status: Never smoker Exposure to second hand smoke: No Drug Use: none - Social Determinants of Health Will the patient participate in the screening: Yes Do you worry about a steady place to live?: No Do you have any problems with any of the following?: No known problems In the past 12 months,have you had to go without utilities?: No Transportation Issues: No Has anyone in your support network made you feel unsafe?: No Have you or anyone in your house had to go w/o enough food: No - Review of Systems All Other Systems: Reviewed and Negative Physical Exam - Nursing Vital Signs Nursing Vital Signs: Initial Vital Signs Temperature 97.5 F 06/23/24 12:36 Pulse Rate 57 L 06/23/24 12:36 Respiratory Rate 15 06/23/24 12:36 Blood Pressure 152/84 06/23/24 12:36 O2 Sat by Pulse Oximetry 96 06/23/24 12:36 Pain Scale Pain Intensity 4 - [place] Coma Scale Best Eye Response ([place]): (4) open spontaneously Best Verbal Response ([place]): (5) oriented Best Motor Response ([place]): (6) obeys commands [place] Total: 15 - Physical Exam General Appearance: no apparent distress Eye Exam: bilateral eye: normal inspection, PERRL, EOMI Ears, Nose, Throat Exam: normal ENT inspection Neck Exam: normal inspection, non-tender, full range of motion, No carotid bruit Respiratory: normal breath sounds, lungs clear, airway intact, No respiratory distress Cardiovascular: bradycardia, capillary refill <2 sec Gastrointestinal: soft, normal bowel sounds, No tenderness Mental Status: alert, oriented x 3 grants assistant Exam: normal hearing, normal speech, PERRL, tongue midline Coordination/Gait: normal finger to nose, normal gait, normal cerebellar fu nction Motor/Sensory: no motor deficit, no sensory deficit, no pronator drift Skin Exam: normal color, warm, dry SpO2 Interpretation: normal SpO2: 96 O2 Delivery: Room Air - Course Nursing assessment & vital signs reviewed: Yes EKG Interpreted by Me: RATE (58), Sinus Rhythm, NORMAL AXIS, NORMAL INTERVALS, NORMAL QRS, NORMAL ST-T Ordered Tests: Medication Summary Discontinued Medications Generic Name Dose Route Start Last Admin Trade Name Freq PRN Reason Stop Dose Admin Sodium Chloride 1,000 mls @ 999 mls/hr 06/23/24 13:18 06/23/24 14:56 Sodium Chloride 0.9% 1000 Ml IV 06/23/24 14:18 Infused .Q1H1M STA Infusion Sodium Chloride Confirm 06/23/24 13:32 Sodium Chloride 0.9% 1000 Ml Administered 06/23/24 13:33 Dose 1,000 mls @ ud .ROUTE .[facility] Lab/Rad Data: Laboratory Result Diagrams 06/23/24 13:38 06/23/24 13:38 Laboratory Results 06/23/24 06/23/24 06/23/24 Range/Units 13:38 13:38 13:38 WBC (4.23-9.07) x10^3/uL RBC (4.63-6.08) x10^6/uL Hgb (13.7-17.5) g/dL Hct (40.1-51.0) % MCV (79.0-92.2) fL MCH (25.7-32.2) pg MCHC (32.3-36.5) g/dL RDW (11.6-14.4) % Plt Count (163-337) x10^3/uL MPV (9.4-12.4) fL Gran % (34.0-67.9) % Immature Gran % (Auto) (0.001-0.429) % Nucleat RBC Rel Count (0.00-0.2) % Eos # (Auto) (0.04-0.54) x10^3/uL Immature Gran # (Auto) (0.001-0.031) x10^3u/L Absolute Lymphs (auto) (1.32-3.57) x10^3/uL Absolute Monos (auto) (0.30-0.82) x10^3/uL Absolute Nucleated RBC (0.00-0.012) x10^3u/L Lymphocytes % (21.8-53.1) % Monocytes % (5.3-12.2) % Eosinophils % (0.8-7.0) % Basophils % (0.2-1.2) % Absolute Granulocytes (1.78-5.38) x10^3/uL Basophils # (0.01-0.08) x10^3/uL Sodium (135-145) mmol/L Potassium (3.5-5.1) mmol/L Chloride (98-107) mmol/L Carbon Dioxide (22-30) mmol/L Anion Gap (5-15) MEQ/L BUN (9-20) mg/dL Creatinine (0.66-1.25) mg/dL Estimated GFR ML/MIN Glucose (74-106) mg/dL Hemoglobin A1c 5.43 (4.5-6.0) % Calcium (8.4-10.2) mg/dL Total Bilirubin (0.2-1.3) mg/dL AST (17-59) U/L ALT (0-50) U/L Alkaline Phosphatase (38-126) U/L Troponin I < 0.012 (0.000-0.033) ng/mL Serum Total Protein (6.3-8.2) g/dL Albumin (3.5-5.0) g/dL Triglycerides (30-150) mg/dL Cholesterol (50-200) mg/dL LDL Cholesterol (30-100) mg/dL HDL Cholesterol (40-60) mg/dL Heart Disease Risk Ratio Free T4 0.94 (0.78-2.19) ng/dL TSH 3rd Generation (0.470-4.680) mIU/L Slides for Path Review 06/23/24 06/23/24 Range/Units 13:38 13:38 WBC 8.7 (4.23-9.07) x10^3/uL RBC 3.84 L (4.63-6.08) x10^6/uL Hgb 11.9 L (13.7-17.5) g/dL Hct 35.3 L (40.1-51.0) % MCV 91.9 (79.0-92.2) fL MCH 31.0 (25.7-32.2) pg MCHC 33.7 (32.3-36.5) g/dL RDW 13.2 (11.6-14.4) % Plt Count 226 (163-337) x10^3/uL MPV 9.9 (9.4-12.4) fL Gran % 86.8 H (34.0-67.9) % Immature Gran % (Auto) 0.5 H (0.001-0.429) % Nucleat RBC Rel Count 0.0 (0.00-0.2) % Eos # (Auto) 0.03 L (0.04-0.54) x10^3/uL Immature Gran # (Auto) 0.04 H (0.001-0.031) x10^3u/L Absolute Lymphs (auto) 0.51 L (1.32-3.57) x10^3/uL Absolute Monos (auto) 0.55 (0.30-0.82) x10^3/uL Absolute Nucleated RBC 0.00 (0.00-0.012) x10^3u/L Lymphocytes % 5.9 L (21.8-53.1) % Monocytes % 6.3 (5.3-12.2) % Eosinophils % 0.3 L (0.8-7.0) % Basophils % 0.2 (0.2-1.2) % Absolute Granulocytes 7.55 H (1.78-5.38) x10^3/uL Basophils # 0.02 (0.01-0.08) x10^3/uL Sodium 139 (135-145) mmol/L Potassium 4.1 (3.5-5.1) mmol/L Chloride 107 (98-107) mmol/L Carbon Dioxide 27 (22-30) mmol/L Anion Gap 9.5 (5-15) MEQ/L BUN 13 (9-20) mg/dL Creatinine 1.06 (0.66-1.25) mg/dL Estimated GFR 71.8 ML/MIN Glucose 106 (74-106) mg/dL Hemoglobin A1c (4.5-6.0) % Calcium 8.7 (8.4-10.2) mg/dL Total Bilirubin 0.50 (0.2-1.3) mg/dL AST 26 (17-59) U/L ALT 19 (0-50) U/L Alkaline Phosphatase 68 (38-126) U/L Troponin I (0.000-0.033) ng/mL Serum Total Protein 6.4 (6.3-8.2) g/dL Albumin 3.7 (3.5-5.0) g/dL Triglycerides 98 (30-150) mg/dL Cholesterol 147 (50-200) mg/dL LDL Cholesterol 94 (30-100) mg/dL HDL Cholesterol 40 (40-60) mg/dL Heart Disease Risk Ratio 4.0 Free T4 (0.78-2.19) ng/dL TSH 3rd Generation 2.810 (0.470-4.680) mIU/L Slides for Path Review YES - Progress Progress: improved Progress Note: Presyncope 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 Episode lasted approximately five minutes, not associated with chest pain, dyspnea, or palpitations. Did not lose consciousness. EKG showed bradycardia with a heart rate in the lower fifties. Differential diagnosis includes heart block and other causes of bradycardia. No history of similar episodes, heart disease, or other significant comorbidities except for prostate cancer treated last year. Physical exam did not reveal any focal neurological deficits or signs suggestive of a stroke. Discussed that if they had passed out completely, a more extensive workup, including potential hospitalization, would be necessary. Since they did not pass out, a heart monitor and follow-up with a supervisor bridges and buildings are recommended. - Order lab work to evaluate for underlying causes - Send home on a heart monitor to track heart rhythm for a few days - Refer to a supervisor bridges and buildings for further evaluation Bradycardia Heart rate noted to be in the lower fifties on EKG, below the normal range. This bradycardia may have contributed to the presyncope. No symptoms of palpitatio ns, skipped beats, or rapid heart rate. Etiology unclear but could be related to heart block or other intrinsic cardiac issues. Discussed that bradycardia can be caused by various factors, including heart block and even simple activities like bearing down during bowel movements. - Monitor heart rate with a heart monitor - Refer to a supervisor bridges and buildings for further evaluation Prostate Cancer Prostate cancer treated with Flomax last April and May. No new medications or changes in health status related to this condition. - Continue current management with Flomax General Health Maintenance Generally healthy with no history of diabetes, heart problems, or other significant health issues. [facility] Follow-up - Follow up with family doctor - Follow up with supervisor bridges and buildings. CTA head/neck neg today. Patient had multiple episodes of HR in the low 40s. [facility] transfer to [facility] evaluation. ER to ER acceptance, Dr. Devlin. Counseled pt/family regarding: lab results, diagnosis, need for follow-up, rad results Medical Desision Making - Diagnostic Testing Diagnostic test were ordered, analyzed, and reviewed by me: Yes Radiological Interpretation: Interpreted by me, Reviewed by me, Teleradiologist Report - Risk of complications The pt has a mod risk of morbidity or mortality based on: Need for prescription drug management - Departure Departure Disposition: Transfer ([facility]) Clinical Impression: Near syncope, Bradycardia, Anemia, Symptomatic bradycardia Condition: Good Critical Care Time: No Referrals: HOSPITAL,'S [Primary Care Provider] - Follow up/PCP as directed Instructions: Bradycardia (DC)
[2024-06-23] MEDS ORDERED: Sodium Chloride 0.9% 1000 ML 1,000 ML ONE (13:32)
[2024-06-23] MEDS: Sodium Chloride 0.9% 1000 ML 1,000 ML IV STA (13:33)
[2024-06-23 13:38] LABS: Absolute Neutrophil Ct (ANC) 7.55 x10^3/uL (1.78-5.38); BASOPHIL % 0.2 % (0.2-1.2); Basophil (Absolute #) 0.02 x10^3/uL (0.01-0.08); Eosinophil % 0.3 % (0.8-7.0); Eosinophil (Absolute #) 0.03 x10^3/uL (0.04-0.54); Hematocrit 35.3 % (40.1-51.0); Hemoglobin 11.9 g/dL (13.7-17.5); IMMATURE GRAN # 0.04 x10^3u/L (0.001-0.031); IMMATURE GRAN % 0.5 % (0.001-0.429); Lymphocyte (Absolute #) 0.51 x10^3/uL (1.32-3.57); Lymphocytes % 5.9 % (21.8-53.1); Mean Cell Volume 91.9 fL (79.0-92.2); Mean Corpuscular Hgb Concent. 33.7 g/dL (32.3-36.5); Mean Platelet Volume 9.9 fL (9.4-12.4); Monocyte (Absolute #) 0.55 x10^3/uL (0.30-0.82); Monocytes % 6.3 % (5.3-12.2); Neutrophil % 86.8 % (34.0-67.9); Platelet Count 226 x10^3/uL (163-337); Red Blood Count 3.84 x10^6/uL (4.63-6.08); Red Cell Distribution Width 13.2 % (11.6-14.4); White Blood Count 8.7 x10^3/uL (4.23-9.07)
[2024-06-23 14:06] LABS: Slide Review 1 YES
[2024-06-23 14:10] LABS: ALBUMIN 3.7 g/dL (3.5-5.0); ANION GAP 9.5 MEQ/L (5-15); BILIRUBIN,TOTAL 0.5 mg/dL (0.2-1.3); Calcium 8.7 mg/dL (8.4-10.2); Creatinine 1 1.06 mg/dL (0.66-1.25); EST GLOMERULAR FILTRATION RATE 71.8 ML/MIN; Potassium 4.1 mmol/L (3.5-5.1); Total Protein 6.4 g/dL (6.3-8.2)
[2024-06-23 14:30] LABS: TSH, 3RD Generation 2.81 mIU/L (0.470-4.680)
[2024-06-23 15:04] VITALS: PULSE 76; RESP 23
--- NOTE | 2024-06-23 15:20 | XRAY ---
CLINICAL HISTORY: near syncope COMPARISON: None. TECHNIQUE: CT angiography of the head and neck was performed following the intravenous administration of [specify contrast agent and amount] of iodinated contrast material. Axial images were obtained from the aortic arch to the vertex. Coronal and sagittal reformatted images were also reviewed. One of the following dose reduction techniques was utilized for this exam. Automated exposure control, adjustment of the mA and/or kV according to patient size, and use of iterative reconstruction. One of these 3D techniques was utilized: Maximum Intensity Pixel (MIP), 3D Reconstructed Images, Volume Rendered Images, Surface Shaded Rendering. FINDINGS: Carotid Arteries: The common, internal, and external carotid arteries are patent bilaterally with no evidence of significant stenosis, aneurysm, or dissection. There is no evidence of atherosclerotic plaque causing significant luminal narrowing. Few calcifications of aortic arch. Slight hypoplasia of the right vertebral artery likely normal variant. Vertebral Arteries: The vertebral arteries are patent bilaterally with no evidence of significant stenosis, aneurysm, or dissection. Thyroid Gland: The thyroid gland is normal in size and appearance with no focal lesions. Lymph Nodes: There is no evidence of significant lymphadenopathy in the neck. Soft Tissues: The soft tissues of the neck are unremarkable with no evidence of masses or abnormal collections. Additional Findings: No other significant findings are noted. IMPRESSION: Normal CT angiography of the head and neck. No evidence of significant vascular abnormalities. Electronically Signed by: Netta White MD. (06/23/2024 15:15:08 EST)
--- NOTE | 2024-06-23 15:22 | XRAY ---
CLINICAL HISTORY: near syncope COMPARISON: No previous studies are available for comparison. TECHNIQUE: CT angiography of the head was performed following the intravenous administration of contrast material. Contiguous axial images were obtained from the base of the skull to the vertex. Coronal and sagittal reformatted images were also reviewed. One of these 3D techniques was utilized: Maximum Intensity Pixel (MIP), 3D Reconstructed Images, Volume Rendered Images, Surface Shaded Rendering. One of the following dose reduction techniques was utilized for this exam. Automated exposure control, adjustment of the mA and/or kV according to patient size, and use of iterative reconstruction. FINDINGS: Intracranial Arteries: The intracranial arteries, including the anterior cerebral arteries, middle cerebral arteries, posterior cerebral arteries, basilar artery, and vertebral arteries, are all patent without evidence of significant stenosis, aneurysm, or dissection. There is no evidence of vascular malformations. 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 All segments are well-visualized and normal in appearance. Venous System: The visualized portions of the venous system, including the dural venous sinuses, are patent with no evidence of thrombosis. Brain Parenchyma: The brain parenchyma shows no evidence of acute infarct, hemorrhage, or mass effect. The ventricles and sulci are normal in size and configuration. Bones: The bony structures of the skull are intact without evidence of fracture or destructive lesions. Soft Tissues: The visualized soft tissues of the head are unremarkable. Age-related involutional brain changes. IMPRESSION: 1. Normal CT angiography of the head. No evidence of significant vascular abnormalities, acute infarct, or hemorrhage. 2. Mild attenuation of A1 segment of right [place] and right vertebral artery ( likely mild hypoplasia as a normal variant). 3. Age-related involutional brain changes. 4. Recommend clinical correlation and further MR with DWI/ADC if clinically warranted. Electronically Signed by: Netta White MD. (06/23/2024 15:18:11 EST) ADDENDUM: 06/23/2024 15:21:[address] [facility] was called at at 2:13 PM [employer] 06/23/2024 and Janessa (Nurse) was informed regarding the negative stroke results. Electronically Signed by: Netta White MD. (06/23/2024 15:21:06 EST)
[2024-06-23 16:28] VITALS: BP 120/80; O2SAT 96
== END 2024-06-23 16:31 | disposition short-term general hospital (02) ==
LOC: ED 12:31
DX: R55 Syncope and collapse (principal); R00.1 Bradycardia, unspecified; D64.9 Anemia, unspecified; Z79.899 Other long term (current) drug therapy
CPT/HCPCS: 36415; 70496; 70498; 80053; 80061; 83036; 83721; 84439; 84443; 84484; 85025; 93005; 93041; 96360; 99284; 99285